=== PATIENT | male | born 1985 | race Caucasian/White ===

== ENCOUNTER 2023-01-22 12:49 | Emergency (ER) | payer MEDICAID ==
[~2023-01-22] VITALS: Ht 167.6 cm; Wt 70.3 kg
[2023-01-22 12:59] VITALS: BP_SYST 153; PULSE 101; RESP 18; TEMP 97.7; O2SAT 95
[2023-01-22] MEDS ORDERED: IBUPROFEN 600 MG TABLET PO ONE (13:30)
[2023-01-22 14:18] VITALS: BP_SYST 158; PULSE 99; RESP 16; TEMP 97.9; O2SAT 96
== END 2023-01-22 14:21 ==
LOC: SED 12:49
DX: G89.29 Other chronic pain (principal); M25.511 Pain in right shoulder; Z79.899 Other long term (current) drug therapy
CPT/HCPCS: 99283

== ENCOUNTER 2023-11-17 19:14 | Emergency (ER) | payer MEDICAID, OTHER ==
[~2023-11-17] VITALS: Ht 172.7 cm; Wt 70.3 kg
[2023-11-17 19:21] VITALS: BP_SYST 129; PULSE 67; RESP 20; TEMP 97.5; O2SAT 97
[2023-11-17] MEDS: ACETAMINOPHEN 500 MG TABLET PO ONE (19:57)
[2023-11-17 20:02] VITALS: BP_SYST 129; PULSE 67; RESP 20; TEMP 97.5; O2SAT 97
== END 2023-11-17 20:02 | disposition home or self-care (01) ==
LOC: SED 19:14
DX: S09.90XA Unspecified injury of head, initial encounter (principal); I12.9 Hypertensive chronic kidney disease with stage 1 through stage 4 chronic kidney disease, or unspecified chronic kidney disease; N18.9 Chronic kidney disease, unspecified; G89.29 Other chronic pain; W22.8XXA Striking against or struck by other objects, initial encounter; Y93.89 Activity, other specified; Y92.89 Other specified places as the place of occurrence of the external cause; Y99.8 Other external cause status
CPT/HCPCS: 99283